=== PATIENT | male | born 1970 | race African-American/Black ===

== ENCOUNTER 2017-04-23 07:28 | Emergency (ER) | payer OTHER, MEDICAID ==
[~2017-04-23] VITALS: Ht 182.9 cm; Wt 90.0 kg
[~2017-04-23 07:28] MED LIST: FURO80TA87 PO; HYDR-4135 PO; INSU100C11 SQ; LABE200T28 PO; LIP40 PO
[2017-04-23 08:27] LABS: BASOPHILS % 1.4 % (0.0-2.0); EOSINOPHILS % 4.7 % (0.0-5.0); HEMATOCRIT. 37.6 % (42.0-52.0); HEMOGLOBIN. 12.2 g/dL (14.0-18.0); LYMPHOCYTES % 15.7 % (20.0-50.0); MEAN CORPUSCULAR HEMOGLOBIN 25.7 pg (28.0-32.0); MEAN CORPUSCULAR VOLUME 78.7 fL (80.0-94.0); MEAN PLATELET VOLUME 7.8 fl (7.4-10.4); MONOCYTES % 13.5 % (2.0-8.0); NEUTROPHILS % 64.7 % (40.0-76.0); PLATELET 246 x1000/uL (130-400); RED BLOOD CELL COUNT 4.77 mill/uL (4.7-6.1); RED CELL DISTRIBUTION WIDTH 17.2 % (11.6-14.6)
[2017-04-23 08:43] LABS: CARBON DIOXIDE 35 mEq/L (21-32); CHLORIDE 96 mEq/L (98-107); TROPONIN I 0.08 ng/mL (0.00-0.04)
[2017-04-23 12:59] VITALS: BP 153/83
== END 2017-04-23 13:49 | disposition home or self-care (01) ==
LOC: ER 07:29
DX: E11.649 Type 2 diabetes mellitus with hypoglycemia without coma (principal); I12.9 Hypertensive chronic kidney disease with stage 1 through stage 4 chronic kidney disease, or unspecified chronic kidney disease; E11.22 Type 2 diabetes mellitus with diabetic chronic kidney disease; N18.9 Chronic kidney disease, unspecified; Z79.4 Long term (current) use of insulin; Z88.6 Allergy status to analgesic agent
CPT/HCPCS: 36415; 80053; 82962; 84484; 85025; 93005; 99285

== ENCOUNTER 2017-11-30 02:39 | Emergency (ER) | payer OTHER, MEDICAID ==
[~2017-11-30] VITALS: Ht 182.9 cm; Wt 96.0 kg
[2017-11-30 03:55] LABS: BASOPHILS % 1.2 % (0.0-2.0); EOSINOPHILS % 4.1 % (0.0-5.0); HEMATOCRIT. 35.1 % (42.0-52.0); HEMOGLOBIN. 11.4 g/dL (14.0-18.0); LYMPHOCYTES % 8.1 % (20.0-50.0); MEAN CORPUSCULAR HEMOGLOBIN 25.5 pg (28.0-32.0); MEAN CORPUSCULAR VOLUME 78.4 fL (80.0-94.0); MEAN PLATELET VOLUME 7.6 fl (7.4-10.4); MONOCYTES % 11.1 % (2.0-8.0); NEUTROPHILS % 75.5 % (40.0-76.0); PLATELET 284 x1000/uL (130-400); RED BLOOD CELL COUNT 4.48 mill/uL (4.7-6.1); RED CELL DISTRIBUTION WIDTH 21.3 % (11.6-14.6)
[2017-11-30 04:46] LABS: CARBON DIOXIDE 22 mEq/L (21-32); CHLORIDE 104 mEq/L (98-107)
[2017-11-30 06:48] VITALS: BP 157/93
== END 2017-11-30 06:49 | disposition home or self-care (01) ==
LOC: ER 02:39
DX: R56.9 Unspecified convulsions (principal); E11.9 Type 2 diabetes mellitus without complications; Z99.2 Dependence on renal dialysis; Z79.4 Long term (current) use of insulin; Z88.5 Allergy status to narcotic agent
CPT/HCPCS: 36415; 70450; 71045; 80053; 82962; 85025; 93005; 99285

== ENCOUNTER 2017-12-17 14:01 | Inpatient (IN) | payer OTHER, MEDICAID ==
[~2017-12-17] VITALS: Ht 182.9 cm; Wt 90.7 kg
[2017-12-17] MEDS ORDERED: DEXTROSE 50% WATER 50ML SYRINGE IV ONE ×2 (14:21→14:45)
[2017-12-17] MEDS ORDERED: DEXT 5%/0.45% NACL 500ML 500 ML IV ONE (14:45)
[2017-12-17 15:03] LABS: BASOPHILS % 0.9 % (0.0-2.0); EOSINOPHILS % 2.2 % (0.0-5.0); HEMATOCRIT. 38.4 % (42.0-52.0); HEMOGLOBIN. 12.4 g/dL (14.0-18.0); LYMPHOCYTES % 8.7 % (20.0-50.0); MEAN CORPUSCULAR VOLUME 77.8 fL (80.0-94.0); MEAN PLATELET VOLUME 7.8 fl (7.4-10.4); MONOCYTES % 10.1 % (2.0-8.0); NEUTROPHILS % 78.1 % (40.0-76.0); PLATELET 264 x1000/uL (130-400); RED BLOOD CELL COUNT 4.94 mill/uL (4.7-6.1); RED CELL DISTRIBUTION WIDTH 20.9 % (11.6-14.6)
[2017-12-17 15:11] LABS: INR 1.1; PROTHROMBIN TIME 11.4 sec (9.4-11.6)
[2017-12-17 15:19] LABS: CARBON DIOXIDE 27 mEq/L (21-32); CHLORIDE 103 mEq/L (98-107); TROPONIN I 0.07 ng/mL (0.00-0.04)
[2017-12-17] MEDS ORDERED: ZOLPIDEM TARTRATE 5MG TABLET PO PRN (21:00)
[2017-12-17] MEDS ORDERED: ONDANSETRON HCL 4MG/2ML VIAL IV PRN (21:00)
[2017-12-17] MEDS ORDERED: NA PHOS,M-B/NA PHOS,DI-BA ENEMA 118ML PR PRN (21:00)
[2017-12-17] MEDS ORDERED: DEXTROSE 50% WATER 50ML SYRINGE IV PRN (21:00)
[2017-12-17] MEDS ORDERED: ACETAMINOPHEN 325MG TABLET PO PRN (21:00)
[2017-12-17] MEDS ORDERED: AMLODIPINE 10MG TABLET PO SCH (21:00)
[2017-12-17] MEDS ORDERED: IPRATROPIUM/ALBUTEROL 0.5-3(2.5)MG/3ML NEB INH PRN (21:00)
[2017-12-17] MEDS ORDERED: MAGNESIUM/ALUMINUM HYDROXIDE/SIMETHICONE 30ML UDC PO PRN (21:00)
[2017-12-17] MEDS ORDERED: TRAMADOL 50MG TABLET PO PRN (21:00)
[2017-12-17] MEDS ORDERED: NITROGLYCERIN 0.4MG TABLET SL SL PRN (21:00)
[2017-12-17] MEDS ORDERED: DOCUSATE SODIUM 100MG CAPSULE PO PRN (21:00)
[2017-12-17] MEDS ORDERED: GUAIFENESIN 200MG/10ML SUGAR FREE UDC PO PRN (21:00)
[2017-12-17] MEDS ORDERED: ENOXAPARIN 40MG/0.4ML SYR SUBCUT SCH (21:00)
[2017-12-17] MEDS ORDERED: MORPHINE SULFATE 4 MG/ML CPJ (NOT FOR IM USE) IV PRN (21:00)
[2017-12-17] MEDS ORDERED: DIPHENHYDRAMINE 50MG/ML VIAL IV PRN (21:00)
[2017-12-17] MEDS ORDERED: FUROSEMIDE 40MG/4ML VIAL IVP SCH (21:30)
[2017-12-17 22:43] LABS: CREATINE KINASE MB FRACTION 6.3 ng/mL (0.5-3.6); TROPONIN I 0.07 ng/mL (0.00-0.04)
[2017-12-17] MEDS: CLONIDINE 0.1MG TABLET PO PRN (23:45)
[2017-12-18] MEDS: CLONIDINE 0.1MG TABLET PO PRN ×2 (02:37→10:27)
[2017-12-18 06:37] LABS: CREATINE KINASE MB FRACTION 4.6 ng/mL (0.5-3.6); TROPONIN I 0.08 ng/mL (0.00-0.04)
[2017-12-18] MEDS: INSULIN LISPRO 100 UNITS/ML SUBCUT SCH ×4 (10:26→21:59)
[2017-12-18] MEDS ORDERED: ASPIRIN 325MG EC TABLET PO SCH (12:46)
[2017-12-18] MEDS ORDERED: FAMOTIDINE 20MG/2ML VIAL IV SCH (12:49)
[2017-12-18] MEDS ORDERED: ENOXAPARIN 30MG/0.3ML SYR SUBCUT SCH (12:56)
[2017-12-18] MEDS ORDERED: AMLO10TA80 PO (13:14)
[2017-12-18] MEDS: SEVELAMER CARBONATE 800 MG TABLET PO SCH ×2 (13:30→17:45)
[2017-12-18] MEDS: HYDRALAZINE HCL 50MG TABLET PO SCH ×2 (13:30→21:58)
[2017-12-18 13:38] VITALS: BP 151/77
[2017-12-18 16:00] VITALS: BP 156/80
[2017-12-18] MEDS: BLOOD SUGAR DIAGNOSTIC STRIP TEST SCH ×2 (17:30→21:58)
[2017-12-18 20:00] VITALS: BP 141/67
[2017-12-18] MEDS ORDERED: GUAIFENESIN/DM 600MG/30MG ER TAB 12HR PO SCH (21:00)
[2017-12-18] MEDS ORDERED: INSULIN GLARGINE UD 100 UNITS/ML SYR SUBCUT SCH (22:00)
[2017-12-18 22:57] VITALS: BP 141/67
== END 2017-12-19 01:00 | disposition short-term general hospital (02) | DRG 637 ==
LOC: ER 14:43 → 8WST 20:23 → EDBEDREQTM 20:27 → EDBEDREQ 20:27 → ENRESERV 12-18 06:53
PROVIDERS: ADMIT Internal Medicine; ATTEND Internal Medicine
PROC: 5A1D70Z Performance of Urinary Filtration, Intermittent, Less than 6 Hours Per Day (ICD-10-PCS; principal; 2017-12-18)
DX: E11.649 Type 2 diabetes mellitus with hypoglycemia without coma (principal); E43 Unspecified severe protein-calorie malnutrition; J96.91 Respiratory failure, unspecified with hypoxia; I13.2 Hypertensive heart and chronic kidney disease with heart failure and with stage 5 chronic kidney disease, or end stage renal disease; G92 Toxic encephalopathy; I50.33 Acute on chronic diastolic (congestive) heart failure; N18.6 End stage renal disease; E11.65 Type 2 diabetes mellitus with hyperglycemia; D64.9 Anemia, unspecified; E11.22 Type 2 diabetes mellitus with diabetic chronic kidney disease; G40.909 Epilepsy, unspecified, not intractable, without status epilepticus; Z82.49 Family history of ischemic heart disease and other diseases of the circulatory system; Z83.3 Family history of diabetes mellitus; Z99.2 Dependence on renal dialysis; Z68.27 Body mass index [BMI] 27.0-27.9, adult; Z88.5 Allergy status to narcotic agent; Z79.899 Other long term (current) drug therapy
CPT/HCPCS: 36415; 70450; 71045; 80053; 80061; 82550; 82553; 82962; 83036; 83880; 84484; 85025; 85610; 87040; 93005; 93970; 96374; 99285; J1650; J1815; J3490

== ENCOUNTER 2018-02-23 10:53 | Inpatient (IN) | payer OTHER, MEDICAID ==
[~2018-02-23] VITALS: Ht 182.9 cm; Wt 94.8 kg
[2018-02-23] VITALS (20 sets, daily range): BP systolic 92–130; BP diastolic 28–70
[~2018-02-23 10:53] MED LIST changes: +AMLO10TA80 PO
[2018-02-23] MEDS ORDERED: SODIUM CHLORIDE 0.9% 1000ML BAG (SEPSIS BOLUS) IV ONE (11:45)
[2018-02-23 12:09] LABS: BG BASE EXCESS -26.3 mmol/L (-2.0-2.0); BG CARBOXYHEMOGLOBIN 0.6 % (0.5-1.5); BG DEOXYHEMOGLOBIN 3.7 % (0.0-5.0); BG HCO3 ACT 4.2 mmol/L (22.0-26.0); BG METHEMOGLOBIN 0.3 % (0.0-1.5); BG OXYGEN SATURATION 96.3 % (92.0-98.5); BG OXYHEMOGLOBIN 95.4 % (94.0-97.0); BG PH 6.944 (7.350-7.450); BG PO2 114.4 mmHg (75.0-100.0); BG SAMPLE SITE RIGHT BRACHIAL; BG TOTAL HEMOGLOBIN 10.3 g/dL (12.0-18.0); BG VENT MODE ROOM AIR
[2018-02-23] MEDS ORDERED: SODIUM CHLORIDE 0.9% 1,000 ML IV SCH ×2 (12:19→19:30)
[2018-02-23] MEDS ORDERED: INSULIN REGULAR (DRIP) 100 UNITS in SODIUM CHLORIDE 0.9% 100 ML IV ONE (12:19)
[2018-02-23] MEDS ORDERED: NOREPINEPHRINE 4 MG in DEXT 5% WATER 250 ML IV STA (12:20)
[2018-02-23] MEDS ORDERED: NOREPINEPHRINE 4 MG in DEXT 5% WATER 246 ML IV STA (12:31)
[2018-02-23 12:42] LABS: HEMATOCRIT. 32.9 % (42.0-52.0); HEMOGLOBIN. 9.3 g/dL (14.0-18.0); MEAN CORPUSCULAR HEMOGLOBIN 24.3 pg (28.0-32.0); MEAN CORPUSCULAR VOLUME 85.8 fL (80.0-94.0); MEAN PLATELET VOLUME 8.3 fl (7.4-10.4); PLATELET 487 x1000/uL (130-400); RED BLOOD CELL COUNT 3.84 mill/uL (4.7-6.1); RED CELL DISTRIBUTION WIDTH 21.2 % (11.6-14.6)
[2018-02-23 12:45] LABS: CHLORIDE 91 mEq/L (98-107)
[2018-02-23 12:46] LABS: INR 1.4; PROTHROMBIN TIME 14.2 sec (9.4-11.6)
[2018-02-23] MEDS ORDERED: PIPERACILLIN/TAZ 3.375G PREMIX 50 ML IV ONE (13:15)
[2018-02-23 13:24] LABS: PLATELET ESTIMATE INCREASED
[2018-02-23 14:34] LABS: PHOSPHORUS 6.9 mg/dL (2.5-4.9)
[2018-02-23] MEDS ORDERED: GUAIFENESIN 200MG/10ML SUGAR FREE UDC PO PRN (15:30)
[2018-02-23] MEDS ORDERED: DOCUSATE SODIUM 100MG CAPSULE PO PRN (15:30)
[2018-02-23] MEDS ORDERED: DIPHENHYDRAMINE 50MG/ML VIAL IV PRN (15:30)
[2018-02-23] MEDS ORDERED: LORAZEPAM 0.5MG TABLET PO PRN (15:30)
[2018-02-23] MEDS ORDERED: IPRATROPIUM/ALBUTEROL 0.5-3(2.5)MG/3ML NEB INH PRN (15:30)
[2018-02-23] MEDS ORDERED: PIPERACILLIN/TAZ 3.375G PREMIX 50 ML IV SCH (15:30)
[2018-02-23] MEDS ORDERED: DEXTROSE 50% WATER 50ML SYRINGE IV PRN ×2 (15:30)
[2018-02-23] MEDS ORDERED: MORPHINE SULFATE 4 MG/ML CPJ (NOT FOR IM USE) IV PRN (15:30)
[2018-02-23] MEDS ORDERED: NITROGLYCERIN 0.4MG TABLET SL SL PRN (15:30)
[2018-02-23] MEDS ORDERED: VANCOMYCIN 1 G PREMIX 200 ML IV SCH (15:30)
[2018-02-23] MEDS ORDERED: ACETAMINOPHEN 325MG TABLET PO PRN (15:30)
[2018-02-23] MEDS ORDERED: ALBUTEROL (0.083%) 2.5MG/3ML NEB HHN STA (15:39)
[2018-02-23] MEDS ORDERED: CALCIUM CHLORIDE 1GM/10ML SYR IV ONE (15:45)
[2018-02-23] MEDS ORDERED: SODIUM BICARBONATE 8.4% 1 MEQ/ML 50ML SYR IV ONE (16:13)
[2018-02-23] MEDS ORDERED: INSULIN REGULAR (HUMULIN R) 300UNITS/3ML IV NR (16:13)
[2018-02-23 16:22] LABS: BETA HYDROXYBUTYRATE 14.2 mMol/L (0.0-0.3)
[2018-02-23] MEDS ORDERED: SODIUM BICARBONATE 8.4% 1 MEQ/ML 50ML SYR IV NR (17:30)
[2018-02-23 17:38] LABS: PHOSPHORUS 6.5 mg/dL (2.5-4.9)
[2018-02-23] MEDS: ENOXAPARIN 30MG/0.3ML SYR SUBCUT SCH ×2 (19:45→21:00)
[2018-02-23] MEDS: BLOOD SUGAR DIAGNOSTIC STRIP TEST SCH ×4 (20:29→23:10)
[2018-02-23] MEDS ORDERED: VANCOMYCIN 1500MG in DEXTROSE 5% WATER 250ML IV NR (21:00)
[2018-02-23] MEDS: INSULIN REGULAR (DRIP) 100 UNITS in SODIUM CHLORIDE 0.9% 99 ML IV SCH (21:54)
[2018-02-23] MEDS: PIPERACILLIN/TAZ 2.25G PREMIX 50 ML IV SCH (22:11)
[2018-02-24] VITALS (91 sets, daily range): BP systolic 76–160; BP diastolic 21–89
[2018-02-24] MEDS: BLOOD SUGAR DIAGNOSTIC STRIP TEST SCH ×22 (00:09→21:26)
[2018-02-24] MEDS: INSULIN REGULAR (DRIP) 100 UNITS in SODIUM CHLORIDE 0.9% 99 ML IV SCH ×2 (01:26→05:16)
[2018-02-24] MEDS: PIPERACILLIN/TAZ 2.25G PREMIX 50 ML IV SCH ×3 (05:59→21:55)
[2018-02-24] MEDS: PANTOPRAZOLE SODIUM 40 MG/VIAL IV SCH (08:54)
[2018-02-24] MEDS ORDERED: ALBUMIN HUMAN 25GM/100ML (25%) IV NR (10:00)
[2018-02-24 10:15] LABS: BG BASE EXCESS 3.1 mmol/L (-2.0-2.0); BG CARBOXYHEMOGLOBIN 1.5 % (0.5-1.5); BG FRACTION INSPIRED OXYGEN 28; BG HCO3 ACT 28.3 mmol/L (22.0-26.0); BG METHEMOGLOBIN 0.2 % (0.0-1.5); BG OXYGEN SATURATION 90.8 % (92.0-98.5); BG OXYHEMOGLOBIN 89.3 % (94.0-97.0); BG PCO2 46.4 mmHg (35.0-45.0); BG PH 7.403 (7.350-7.450); BG PO2 57.2 mmHg (75.0-100.0); BG SAMPLE SITE RIGHT BRACHIAL; BG TOTAL HEMOGLOBIN 8.9 g/dL (12.0-18.0); BG VENT MODE NASAL CANNULA
[2018-02-24] MEDS: MIDODRINE HCL 5MG TABLET PO SCH ×2 (10:16→21:50)
[2018-02-24] MEDS ORDERED: VANCOMYCIN 1 G PREMIX 200 ML IV NR (18:00)
[2018-02-24] MEDS ORDERED: DEXTROSE 50% WATER 50ML SYRINGE IV PRN (21:30)
[2018-02-24] MEDS: ONDANSETRON HCL 4MG/2ML VIAL IV PRN (21:50)
[2018-02-24] MEDS: ENOXAPARIN 30MG/0.3ML SYR SUBCUT SCH (21:50)
[2018-02-24] MEDS ORDERED: INSULIN GLARGINE UD 100 UNITS/ML SYR SUBCUT SCH (23:00)
[2018-02-25] VITALS (74 sets, daily range): BP systolic 104–212; BP diastolic 51–110
[2018-02-25 05:20] LABS: BASOPHILS % 1.3 % (0.0-2.0); EOSINOPHILS % 2.4 % (0.0-5.0); HEMATOCRIT. 28.8 % (42.0-52.0); HEMOGLOBIN. 9.5 g/dL (14.0-18.0); LYMPHOCYTES % 11.5 % (20.0-50.0); MEAN CORPUSCULAR HEMOGLOBIN 24.5 pg (28.0-32.0); MEAN CORPUSCULAR VOLUME 74.3 fL (80.0-94.0); MEAN PLATELET VOLUME 7.2 fl (7.4-10.4); MONOCYTES % 11.6 % (2.0-8.0); NEUTROPHILS % 73.2 % (40.0-76.0); PLATELET 391 x1000/uL (130-400); RED BLOOD CELL COUNT 3.88 mill/uL (4.7-6.1); RED CELL DISTRIBUTION WIDTH 20.4 % (11.6-14.6)
[2018-02-25 05:31] LABS: CHLORIDE 98 mEq/L (98-107)
[2018-02-25] MEDS: PIPERACILLIN/TAZ 2.25G PREMIX 50 ML IV SCH ×2 (05:40→13:30)
[2018-02-25] MEDS: INSULIN LISPRO 100 UNITS/ML SUBCUT SCH ×3 (05:45→17:00)
[2018-02-25] MEDS: BLOOD SUGAR DIAGNOSTIC STRIP TEST SCH ×3 (05:45→16:30)
[2018-02-25 05:50] LABS: PHOSPHORUS 3.1 mg/dL (2.5-4.9)
[2018-02-25] MEDS: ONDANSETRON HCL 4MG/2ML VIAL IV PRN ×2 (06:28→11:02)
[2018-02-25] MEDS: PANTOPRAZOLE SODIUM 40 MG/VIAL IV SCH (09:39)
[2018-02-26] MEDS ORDERED: EPOETIN ALFA 4000UNITS/ML VIAL SUBCUT SCH (21:00)
== END 2018-02-25 19:18 | disposition short-term general hospital (02) | DRG 871 ==
LOC: ER 11:47 → MICUSO 13:37 → EDBEDREQSVC 13:41 → EDBEDREQ 13:41 → EDBEDREQTM 13:41 → ENRESERV 18:29
PROVIDERS: ADMIT Internal Medicine; ATTEND Internal Medicine
PROC: 02HV33Z Insertion of Infusion Device into Superior Vena Cava, Percutaneous Approach (ICD-10-PCS; principal; 2018-02-23)
PROC: B548ZZA Ultrasonography of Superior Vena Cava, Guidance (ICD-10-PCS; 2018-02-23)
PROC: 5A1D70Z Performance of Urinary Filtration, Intermittent, Less than 6 Hours Per Day (ICD-10-PCS; 2018-02-23)
PROC: 5A1D70Z Performance of Urinary Filtration, Intermittent, Less than 6 Hours Per Day (ICD-10-PCS; 2018-02-24)
DX: A41.9 Sepsis, unspecified organism (principal); E11.00 Type 2 diabetes mellitus with hyperosmolarity without nonketotic hyperglycemic-hyperosmolar coma (NKHHC); E43 Unspecified severe protein-calorie malnutrition; R65.21 Severe sepsis with septic shock; G92 Toxic encephalopathy; E87.2 Acidosis; J18.9 Pneumonia, unspecified organism; N18.6 End stage renal disease; E11.10 Type 2 diabetes mellitus with ketoacidosis without coma; I12.0 Hypertensive chronic kidney disease with stage 5 chronic kidney disease or end stage renal disease; E87.1 Hypo-osmolality and hyponatremia; E11.22 Type 2 diabetes mellitus with diabetic chronic kidney disease; Z99.2 Dependence on renal dialysis; D63.8 Anemia in other chronic diseases classified elsewhere; E78.00 Pure hypercholesterolemia, unspecified; E87.5 Hyperkalemia; H54.61 Unqualified visual loss, right eye, normal vision left eye; E83.51 Hypocalcemia; E78.5 Hyperlipidemia, unspecified; Z60.2 Problems related to living alone; Z83.3 Family history of diabetes mellitus; Z79.4 Long term (current) use of insulin; Z80.9 Family history of malignant neoplasm, unspecified; Z82.49 Family history of ischemic heart disease and other diseases of the circulatory system; Z79.899 Other long term (current) drug therapy; Z88.6 Allergy status to analgesic agent; Z88.8 Allergy status to other drugs, medicaments and biological substances; Z87.440 Personal history of urinary (tract) infections; Z68.28 Body mass index [BMI] 28.0-28.9, adult
CPT/HCPCS: 36415; 36569; 36600; 70450; 71045; 74176; 76937; 80048; 80053; 80061; 80202; 82010; 82375; 82805; 82962; 83036; 83605; 83690; 83735; 84100; 84484; 85025; 85610; 87040; 93005; 93970; 94640; 96365; 96366; 96375; 99291; C1725; C9113; J1200; J1650; J1815; J2405; J2543; J3370; J3490; J7030; J7050; J7060; J7611; P9047